=== PATIENT | male | born 1935 | race Caucasian/White ===

== ENCOUNTER → 2024-08-21 12:30 | Outpatient (REF) | payer MEDICARE, SELFPAY | LOC: RCS 12:30 | PROVIDERS: ATTENDING PHYSICIAN Internal Medicine Cardiovascular Disease; FAMILY PHYSICIAN Hospitalist | DX: I62.00 Nontraumatic subdural hemorrhage, unspecified (principal); Z95.818 Presence of other cardiac implants and grafts; W19.XXXA Unspecified fall, initial encounter | CPT/HCPCS: 93225; 93226 ==

== ENCOUNTER → 2024-09-13 13:08 | Outpatient (REF) | payer MEDICARE, SELFPAY | LOC: PAVMRI 13:08 | PROVIDERS: ATTENDING PHYSICIAN Hospitalist | DX: S06.5XAA Traumatic subdural hemorrhage with loss of consciousness status unknown, initial encounter (principal); R55 Syncope and collapse | CPT/HCPCS: 70551 ==

== ENCOUNTER → 2025-01-01 15:14 | Outpatient (REF) | payer MEDICARE, SELFPAY ==
[2025-01-01 17:13] LABS: TSH 0.51 uIU/ml (0.47-4.68)
[2025-01-01 17:49] LABS: Folate > 20.0 ng/ml (2.76-20); Vitamin B12 328 pg/ml (239-931)
== END ==
LOC: REG 15:14
PROVIDERS: ATTENDING PHYSICIAN Specialist; FAMILY PHYSICIAN Family Medicine
DX: H53.2 Diplopia (principal); E03.9 Hypothyroidism, unspecified; D51.8 Other vitamin B12 deficiency anemias
CPT/HCPCS: 36415; 82607; 82746; 84436; 84443; 86041; 86366